=== PATIENT | female | born 1990 | race Caucasian/White ===

== ENCOUNTER → 2021-08-09 | Emergency (ER) | payer OTHER ==
[~2021-08-09] VITALS: Ht 157.5 cm; Wt 69.9 kg
--- NOTE | 2021-08-09 12:25 | NUR ---
[employer] AND [employer] OFF[employer]ERS, RUNNING IN & OUT OF TRAFFIC, AGITATED AFTER "USING WEED". PT VERBALIZES SMOKING MARIJUANA. TO ER BED 12.
--- NOTE | 2021-08-09 13:00 | NUR ---
PT SEEN BY DR. VEGA
[2021-08-09 13:36] VITALS: BP 138/72
== END | disposition home or self-care (01) ==
LOC: ER 12:26
DX: F12.90 Cannabis use, unspecified, uncomplicated (principal)